=== PATIENT | male | born 1980 ===

== ENCOUNTER 2016-11-03 11:18 | Emergency (ER) | payer BC ==
[~2016-11-03] VITALS: Ht 193 cm; Wt 91.0 kg
[2016-11-03] MEDS ORDERED: HYDROmorphone 1 MG/ML (DILAUDID) SYRINGE IV ONE (12:15)
[2016-11-03] MEDS ORDERED: SODIUM CHLORIDE FLUSH 3 ML SYR IV PRN (12:15)
[2016-11-03] MEDS ORDERED: SODIUM CHLORIDE FLUSH 10 ML SYR IV PRN (12:15)
[2016-11-03 12:29] LABS: BASOPHILS % (AUTO) 0 % (0-2); EOSINOPHILS # (AUTO) 0.2 10^3uL; EOSINOPHILS % (AUTO) 3 % (0-4); LYMPHOCYTES # (AUTO) 1.5 X10^3; MEAN CORPUSCULAR HEMOGLOBIN 30.3 PG (26.0-34.0); MEAN CORPUSCULAR HGB CONC 34.4 g/dL (31.0-37.0); MEAN CORPUSCULAR VOLUME 88 FL (80-100); MEAN PLATELET VOLUME 11.8 FL (6.0-9.5); MONOCYTES # (AUTO) 0.5 X10^3; MONOCYTES % (AUTO) 6 % (3-11); NEUTROPHILS # (AUTO) 5.3 X10^3; NEUTROPHILS % (AUTO) 70 % (51-67); PLATELET COUNT 184 10^3uL (150-450); WHITE BLOOD COUNT 7.52 10^3uL (4.0-11.0)
[2016-11-03 12:40] LABS: ANION GAP 17.6 MEQ/L (3-15); CALCULATED IONIZED CALCIUM 4.1 mg/dL (3.8-4.6); TOTAL PROTEIN 8.2 g/dL (6.4-8.5)
--- NOTE | 2016-11-03 13:28 | NUR ---
RATES RT LOWER ABD PAIN AT "4". RESTING QUIETLY ON ER CART.
[2016-11-03 13:30] LABS: BILIRUBIN,URINE Negative (Negative); CLARITY,URINE Clear; COLOR,URINE Yellow; GLUCOSE, URINE (UA) Negative (Negative); LEUKOCYTE ESTERASE ,URINE Negative (Negative); PH,URINE 6.5 (5.0 - 8.0)
[2016-11-03 13:39] LABS: RBC,URINE 20-50 /HPF; URINE CENTRIFUGED VOLUME 12 mL
[2016-11-03 23:10] VITALS: BP 130/62
== END 2016-11-03 16:24 | disposition home or self-care (01) ==
LOC: ED 11:19
DX: N20.2 Calculus of kidney with calculus of ureter (principal)
CPT/HCPCS: 36415; 74176; 80053; 81003; 81015; 83690; 85025; 96360; 99284; J7030; 99283

== ENCOUNTER → 2016-11-03 | Outpatient (CLI) | payer BC ==
[2016-11-03 11:20] VITALS: BP 122/78
== END ==
LOC: MHUC 11:05
PROVIDERS: ATTEND Physician Assistant
DX: R10.31 Right lower quadrant pain (principal)